=== PATIENT | female | born 1955 | race Caucasian/White ===

== ENCOUNTER 2017-07-10 12:20 | Emergency (ER) | payer BC ==
[~2017-07-10] VITALS: Ht 162.6 cm; Wt 91.4 kg
[2017-07-10 12:22] VITALS: Ht 162.6 cm; Wt 91.4 kg
[2017-07-10] MEDS ORDERED: SODIUM CHLORIDE 0.9% 1000ML 1,000 ML IV STA (12:53)
[2017-07-10 13:27] LABS: BASO % 0.1 %; BASO ABS # 0.01 K/uL (0-0.2); COMPLETE YES; EOS % 0.2 %; HEMATOCRIT 40.9 % (37-47); IG% 0.2 %; LYMPH % 2.3 %; LYMPH ABS # 0.26 K/uL (1.2-3.4); MEAN CELL VOLUME 86.5 fL (80-100); MEAN CORPUSCULAR HEMOGLOBIN 27.9 pg (25-34); MEAN CORPUSCULAR HGB CONC 32.3 g/dl (32-36); MEAN PLATELET VOLUME 8.9 fL (7.4-10.4); MONO % 5.9 %; NEUT % 91.3 %; PLATELET COUNT 243 K/uL (130-400); RED BLOOD COUNT 4.73 M/uL (4.2-5.4); WHITE BLOOD COUNT 11.32 K/uL (4.8-10.8)
[2017-07-10] MEDS ORDERED: ONDANSETRON INJ 2 MG/ML 2 ML VIAL IV STA (13:27)
[2017-07-10] MEDS ORDERED: HYDROmorphone INJ 0.5 MG/0.5 ML SYR IV PRN (13:30)
[2017-07-10] MEDS ORDERED: OMEP20TA40 PO (13:35)
[2017-07-10 13:45] LABS: CALCIUM 8.4 mg/dl (8.5-10.1); POTASSIUM 3.9 mmol/L (3.5-5.1)
--- NOTE | 2017-07-10 14:50 | DIAGNOSTIC IMAGING REPORT ---
ABDOMEN AND PELVIS CT WITHOUT CONTRAST CT DOSE: 821.27 mGy.cm HISTORY: Upper abd pain, vomiting. Right CVA pain. Prior Josseline TECHNIQUE: Multiaxial CT images of the abdomen and pelvis were performed without contrast. A dose lowering technique was utilized adhering to the principles of ALARA. COMPARISON STUDY: None. FINDINGS: The lung bases are clear. No pneumoperitoneum. No pneumatosis. No fractures within the visualized osseous structures. Epigastric surgical clips with suggestion of prior gastric sleeve procedure. Hepatic steatosis. The unenhanced spleen, adrenal glands, pancreas, and kidneys are unremarkable. No retroperitoneal lymphadenopathy. Tiny fat-containing supraumbilical hernia. The bladder, uterus, bilateral adnexa are unremarkable. Suboptimal evaluation for bowel pathology due to the lack of intravenous and oral contrast. No evidence for bowel obstruction. A few colonic diverticula. The visualized appendix is unremarkable. Multiple mildly thickened loops of small bowel seen within the mid to lower abdomen. This involves both iliac and jejunal loops. IMPRESSION: Multiple mildly thickened loops of small bowel within the mid to lower abdomen consistent with a nonspecific enteritis. This favors an inflammatory or infectious process. Electronically signed by: Rodrick Maza M.D. 07/10/2017 2:49 PM Dictated Date/Time: 07/10/2017 2:36 PM
[2017-07-10] MEDS ORDERED: ACETAMINOPHEN 500 MG TAB PO STA (14:59)
--- NOTE | 2017-07-10 16:03 | EMERGENCY ROOM VISIT NOTE ---
History Report prepared by Davin: Rocío Christensen Under the Supervision of: Dr. Deangelo Sanabria M.D. First contact with patient: 12:52 Chief Complaint: VOMITING Stated Complaint: VOMITING, DIARRHEA Nursing Triage Summary: triage note: pt reports since 0100 today nausea, vomitting, diarrhea, pain in joints and right abd pain. History of Present Illness The patient is a 61 year old female who presents to the Emergency Room with complaints of constant sharp right sided abdominal pain beginning 12 hours ago ago. The patient also reports nausea, vomiting, diarrhea, and pain in her joints. She states she threw up 10 times and had more than 10 episodes of diarrhea. She states she has never had pain like this before.The patient has a history of a cholecystectomy and and partial hysterectomy. Pt denies LOC, headache, fevers, chills, diaphoresis, visual changes, neck pain, chest pain, breathing difficulties, back pain, melena, hematochezia, urinary symptoms, numbness, weakness, lymphadenopathy, rash, or other complaints. Source of History: patient Onset: 12 hours ago Position: abdomen Quality: sharp Timing: constant Associated Symptoms: + nausea, + vomiting, + abdominal pain, + diarrhea Review of Systems See HPI for pertinent positives and negatives. A total of ten systems were reviewed and were otherwise negative. Past Medical & Surgical Surgical Problems: (1) History of cholecystectomy (2) History of partial hysterectomy Family History No pertinent family history stated. Social History Marital Status: Current/Historical Medications Scheduled Omeprazole ([facility] Omeprazole), 20 MG PO DAILY Allergies Coded Allergies: Codeine (Unverified Allergy, Unknown, ., 07/10/17) Physical Exam Vital Signs Date Time Temp Pulse Resp B/P (MAP) Pulse Ox O2 Delivery O2 Flow Rate FiO2 07/10/17 16:38 95 18 117/65 99 Room Air 07/10/17 16:21 36.9 07/10/17 14:17 88 126/70 93 Room Air Manual 07/10/17 13:09 85 07/10/17 12:48 68 20 122/70 07/10/17 12:22 38.0 94 22 113/63 99 Room Air Physical Exam GENERAL: Awake, alert, ill and uncomfortable-appearing, in no distress HENT: Normocephalic, atraumatic. Oropharynx unremarkable. EYES: Normal conjunctiva. Sclera non-icteric. NECK: Supple. No nuchal rigidity. FROM. No JVD. RESPIRATORY: Clear to auscultation. CARDIAC: Regular rate, normal rhythm. Extremities warm and well perfused. Pulses equal. ABDOMEN: Severe RUQ tenderness with minimal RLQ and LUQ tenderness. Some right CVA tenderness RECTAL: Deferred. MUSCULOSKELETAL: Chest examination reveals no tenderness. The back is symmetrical on inspection without obvious abnormality. There is no CVA tenderness to palpation. No joint edema. LOWER EXTREMITIES: Calves are equal size bilaterally and non-tender. No edema. No discoloration. NEURO: Normal sensorium. No sensory or motor deficits noted. SKIN: No rash or jaundice noted. Medical Decision & Procedures ER Provider Diagnostic Interpretation: Radiology results as stated below per my review and radiologist interpretation: ABDOMEN AND PELVIS CT WITHOUT CONTRAST FINDINGS: The lung bases are clear. No pneumoperitoneum. No pneumatosis. No fractures within the visualized osseous structures. Epigastric surgical clips with suggestion of prior gastric sleeve procedure. Hepatic steatosis. The unenhanced spleen, adrenal glands, pancreas, and kidneys are unremarkable. No retroperitoneal lymphadenopathy. Tiny fat-containing supraumbilical hernia. The bladder, uterus, bilateral adnexa are unremarkable. Suboptimal evaluation for bowel pathology due to the lack of intravenous and oral contrast. No evidence for bowel obstruction. A few colonic diverticula. The visualized appendix is unremarkable. Multiple mildly thickened loops of small bowel seen within the mid to lower abdomen. This involves both iliac and jejunal loops. IMPRESSION: Multiple mildly thickened loops of small bowel within the mid to lower abdomen consistent with a nonspecific enteritis. This favors an inflammatory or infectious process. Electronically signed by: Rodrick Maza M.D. Laboratory Results 07/10/17 13:03 Red Blood Count 4.73, Mean Corpuscular Volume 86.5, Mean Corpuscular Hemoglobin 27.9, Mean Corpuscular Hemoglobin Concent 32.3, Mean Platelet Volume 8.9, Neutrophils (%) (Auto) 91.3, Lymphocytes (%) (Auto) 2.3, Monocytes (%) (Auto) 5.9, Eosinophils (%) (Auto) 0.2, Basophils (%) (Auto) 0.1, Neutrophils # (Auto) 10.34, Lymphocytes # (Auto) 0.26, Monocytes # (Auto) 0.67, Eosinophils # (Auto) 0.02, Basophils # (Auto) 0.01 07/10/17 13:03 Test 07/10/17 13:03 07/10/17 16:10 White Blood Count 11.32 K/uL (4.8-10.8) Red Blood Count 4.73 M/uL (4.2-5.4) Hemoglobin 13.2 g/dL (12.0-16.0) Hematocrit 40.9 % (37-47) Mean Corpuscular Volume 86.5 fL (80-100) Mean Corpuscular Hemoglobin 27.9 pg (25-34) Mean Corpuscular Hemoglobin Concent 32.3 g/dl (32-36) Platelet Count 243 K/uL (130-400) Mean Platelet Volume 8.9 fL (7.4-10.4) Neutrophils (%) (Auto) 91.3 % Lymphocytes (%) (Auto) 2.3 % Monocytes (%) (Auto) 5.9 % Eosinophils (%) (Auto) 0.2 % Basophils (%) (Auto) 0.1 % Neutrophils # (Auto) 10.34 K/uL (1.4-6.5) Lymphocytes # (Auto) 0.26 K/uL (1.2-3.4) Monocytes # (Auto) 0.67 K/uL (0.11-0.59) Eosinophils # (Auto) 0.02 K/uL (0-0.5) Basophils # (Auto) 0.01 K/uL (0-0.2) RDW Standard Deviation 41.9 fL (36.4-46.3) RDW Coefficient of Variation 13.1 % (11.5-14.5) Immature Granulocyte % (Auto) 0.2 % Immature Granulocyte # (Auto) 0.02 K/uL (0.00-0.02) Anion Gap 8.0 mmol/L (3-11) Est Creatinine Clear Calc Drug Dose 65.5 ml/min Estimated GFR () 70.9 Estimated GFR (Non- 61.2 BUN/Creatinine Ratio 18.0 (10-20) Calcium Level 8.4 mg/dl (8.5-10.1) Total Bilirubin 0.8 mg/dl (0.2-1) Direct Bilirubin 0.3 mg/dl (0-0.2) Aspartate Amino Transf (AST/SGOT) 93 U/L (15-37) Alanine Aminotransferase (ALT/SGPT) 62 U/L (12-78) Alkaline Phosphatase 83 U/L (45-117) Total Protein 7.4 gm/dl (6.4-8.2) Albumin 3.6 gm/dl (3.4-5.0) Lipase 136 U/L (73-393) Urine Color DK YELLOW Urine Appearance CLEAR (CLEAR) Urine pH 5.0 (4.5-7.5) Urine Specific Archer 1.028 (1.000-1.030) Urine Protein NEG (NEG) Urine Glucose (UA) TRACE (NEG) Urine Ketones TRACE (NEG) Urine Occult Blood NEG (NEG) Urine Nitrite NEG (NEG) Urine Bilirubin NEG (NEG) Urine Urobilinogen NEG (NEG) Urine Leukocyte Esterase NEG (NEG) Laboratory results reviewed by me Medications Administered Medications (Trade) Dose Ordered Sig/Luly Route Start Time Stop Time Status Last Admin Dose Admin Sodium Chloride 1,000 ml @ 999 mls/hr Q1H1M STAT IV 07/10/17 12:53 07/10/17 13:53 DC 07/10/17 12:53 999 MLS/HR Hydromorphone HCl (Dilaudid Inj) 0.5 mg Q15M PRN IV 07/10/17 13:30 07/10/17 18:02 DC 07/10/17 13:38 0.5 MG Ondansetron HCl (Zofran Inj) 4 mg NOW STAT IV 07/10/17 13:27 07/10/17 13:29 DC 07/10/17 13:38 4 MG Acetaminophen (Tylenol Tab) 1,000 mg NOW STAT PO 07/10/17 14:59 07/10/17 15:00 DC 07/10/17 15:20 1,000 MG Metoclopramide HCl (Reglan Inj) 5 mg NOW STAT IV 07/10/17 16:28 07/10/17 16:30 DC 07/10/17 16:40 5 MG Promethazine HCl (Phenergan 25MG Home Pack) 1 homepack UD ONCE PO 07/10/17 17:00 07/10/17 17:01 DC 07/10/17 17:10 1 HOMEPACK ED Course 1253: Sodium Chloride 1000 ml @ 999 mls/hr IV. 1326: The patient was evaluated in room B6. A complete history and physical exam was performed. 1327: Zofran Inj 4 mg IV. 1330: Dilaudid Inj 0.5 mg IV. 1459: Tylenol Tab 1000 mg PO. 1502: The patient's nausea is better. She is giving a urine sample. 1620: The patient is feeling better but still has a small amount of nausea. 1628: Reglan Inj 5 mg IV. 1650: The patient is symptomatic and would like to go home. 1700: Promethazine HCl 1 homepack PO. 1705: I reevaluated the patient. Discussed results and discharge instructions: She verbalized understanding and agreement. The patient is ready for discharge. Medical Decision Triage Nursing notes reviewed. The patient's presentation and history were concerning for N/V/D. Etiologies such as gastroenteritis, food borne illness, infections, obstruction , pancreatitis, appendicitis, diverticulitis, inflammatory bowel disease, GI bleed, biliary pathology, toxicologic as well as others were entertained. The patient was evaluated. Clinically she was uncomfortable but did not have any peritoneal findings. She was hydrated. She was given Zofran and a small dose of Dilaudid. The patient had a slight leukocytosis. She had a minimal elevation of her LFTs but she states she has been told about this in the past. The patient underwent CT imaging which revealed findings consistent with an enteritis. On reassessment she was doing better. She was given Tylenol and she developed a mild headache. She was given an oral challenge with crackers and caesar kg. She did well with this. She had some very slight nausea. The patient was given Phenergan. She is reassessed and was feeling good. The patient's fever resolved. Her headache resolved. I discussed conservative management with the patient and she was in agreement. A Phenergan home pack was provided. Instructions were outlined. The patient will follow-up closely in a primary office. If she worsens in any way she will be back. I suspect an enteritis given the vomiting, diarrhea, and CT findings. By the evaluation outlined above other emergent etiologies such as those listed in the differential, as well as others, were deemed relatively unlikely. The patient was educated about the findings as listed above. All questions were answered and the patient was pleased with the treatment. Return instructions were outlined and the patient was discharged in stable condition. The patient was referred to her PCP for follow-up for a recheck of the current condition. Blood Pressure Screening Patient's blood pressure: Normal blood pressure Impression Primary Impression: Nausea, vomiting, and diarrhea Additional Impressions: Generalized abdominal pain Enteritis Scribe Attestation The scribe's documentation has been prepared under my direction and personally reviewed by me in its entirety. I confirm that the note above accurately reflects all work, treatment, procedures, and medical decision making performed by me. Departure Information Dispostion Home / Self-Care Forms HOME CARE DOCUMENTATION FORM, IMPORTANT VISIT INFORMATION Patient Instructions My [facility] Additional Instructions VOMITING INSTRUCTIONS: DO NOT drive, drink alcohol, operate machinery, or perform dangerous activities today. You were given medications in the ER that can affect your ability to safely function or operate a vehicle. Phenergan(promethazine) tablets 25mg: Take one every six hours as needed for nausea. Avoid alcohol, operating machinery or dangerous equipment, working on ladders or roofs, DRIVING, or situations where being under the influence may be dangerous. Ibuprofen(Motrin, Advil) may be used for fever or pain. Use 600mg every six hours as needed. Take with food. Avoid using more than 2400mg in a 24 hour period. Do not use 2400mg per day for more than three consecutive days without physician direction. Prolonged inappropriate use can lead to stomach upset or ulcers. (AND/OR) Acetaminophen(Tylenol) may be used for fever or pain. Use 1000mg every six hours as needed. Avoid using more than 4000mg in a 24 hour period. Rest and drink plenty of fluids as tolerated. Slow sips of water or sports drinks are recommended instead of large amounts all at once. Continue current medications. Once your stomach is settled start with a clear liquid diet (jello, soup broth, etc.) and then advance as tolerated. You should avoid full, heavy meals for about 24 hrs from the time your symptoms resolved. Return to the ER for persistent vomiting, fevers, abdominal pain, chest pains, difficulty breathing, black or bloody stools, worsening of your condition, or as needed. Follow up with your primary physician in 2-3 days for a recheck of your current condition Problem Qualifiers
[2017-07-10] MEDS: PHENERGAN 25MG HOMEPACK PO ONE ×2 (16:10→17:10)
[2017-07-10 16:21] VITALS: TEMP 36.9
[2017-07-10 16:25] LABS: URINE APPEARANCE CLEAR (CLEAR); URINE BILIRUBIN NEG (NEG); URINE COLOR DK YELLOW; URINE NITRITE NEG (NEG); URINE SPECIFIC GRAVITY 1.028 (1.000-1.030); UROBILINOGEN NEG (NEG); ZZUR CULT IF INDIC CLEAN CATCH NO
[2017-07-10] MEDS ORDERED: METOCLOPRAMIDE HCL INJ 5 MG/ML 2 ML VIAL IV STA (16:28)
[2017-07-10 16:38] VITALS: BP 117/65; PULSE 95; O2SAT 99
[2017-07-10 16:47] LABS: MANUAL MICROSCOPIC REQUIRED? NO; REVIEW REQ? NO
== END 2017-07-10 17:10 | disposition home or self-care (01) ==
LOC: C.EDB 12:21
DX: R11.2 Nausea with vomiting, unspecified (principal); K52.9 Noninfective gastroenteritis and colitis, unspecified; R10.84 Generalized abdominal pain; Z79.899 Other long term (current) drug therapy